=== PATIENT | male | born 1975 | race Asian ===

== ENCOUNTER 2024-07-06 04:03 | Emergency (ER) | payer OTHER, SELFPAY ==
[2024-07-06 04:08] VITALS: BP 143/98
[2024-07-06 04:18] VITALS: BMI 24.9
[2024-07-06 04:41] LABS: Hematocrit 38.3 % (39.0-52.0); Hemoglobin 13.5 g/dL (13.0-18.0); Mean Corp Hgb Conc. 35.2 g/dL (33.0-37.0); Mean Corpuscular Hgb 27.4 pg (27.0-31.0); Mean Corpuscular Volume 77.8 fL (80.0-94.0); Mean Platelet Volume 9.8 fL (7.4-10.4); Platelet Count 280 10^3/uL (130-400); Red Blood Cell Count 4.92 10^6/uL (4.70-6.10); Red Cell Dist. Width 12.5 % (11.5-14.5); White Blood Cell Count 9.4 10^3/uL (4.8-10.8)
[2024-07-06 04:52] LABS: ALT (SGPT) 18 U/L (0-50); AST (SGOT) 21 U/L (17-59); Albumin 4.5 g/dl (3.5-5.0); Alkaline Phosphatase 75 U/L (38-126); Blood Urea Nitrogen 30 mg/dl (9-20); Calcium 9.7 mg/dl (8.4-10.2); Carbon Dioxide 23 mmol/L (22-30); Chloride 104 mmol/L (98-107); Estimated Creatinine Clearance 80 ml/min; Glucose 177 mg/dl (70-99); Lipase 190 U/L (23-300); Potassium 3.6 mmol/L (3.5-5.1); Sodium 138 mmol/L (135-145); Total Bilirubin 0.5 mg/dl (0.2-1.3); Total Protein 6.8 g/dl (6.3-8.2); eGFR > 60.00
--- NOTE | 2024-07-06 04:54 | ED.GENMED ---
History of Present Illness
<Nehemiah Rodriguez [facility] - Last Filed: 07/06/24 06:29>
General
Chief Complaint: Abdominal Pain
Source: patient
Exam Limitations: none
Time Seen by Provider: 07/06/24 04:40
History of Present Illness
History of Present Illness:
Pt is a 48 y/o male with PMHx of DM and GERD presenting for lower abdominal pain x 2 hours. Pt states the pain woke him up from sleep. He states it is a 10/10 pain across his entire lower quadrant and across the lower back. He states the pain is
significantly worse in his abdomen than his back. He was given Fentanyl by EMS and states it did not help at all. He states he is also having nausea with no vomiting since the pain started. He was given Zofran by EMS and states it did not help. He
states he went to bed feeling fine. He denies any fevers, diarrhea, hematochezia, chest pain, shortness of breath, vomiting, dysuria, hematuria.
Phy Exam
<Nehemiah Rodriguez [facility] - Last Filed: 07/06/24 06:29>
Physical Exam
Physical Exam:
GENERAL: Patient appears uncomfortable in moderate distress. He is rolling back in forth in bed repeating 'I am in so much pain'
EYE: pupils equal and reactive
Throat: Airway intact, no exudates
NECK: Supple, no significant adenopathy.
CARDIAC: Regular rate and rhythm . No murmurs.
LUNGS: Clear breath sounds bilaterally, no acute respiratory distress, no wheezes/rales/rhonchi
ABDOMEN: Tender to palpation in entire lower abdomen worse in the RLQ. No guarding. Abdomen is soft and nondistended. No cvat. Negative Rovsing's, obturator and Psoas signs. No Mcburney's tenderness.
NEUROLOGICAL: Alert and oriented, no focal neuro deficits
SKIN: Warm and dry, skin intact.
MUSCULOSKELETAL: No edema, well perfused.
PSYCH: Normal and appropriate interaction.
Course
<[facility] - Last Filed: 07/06/24 06:29>
Orders/Labs/Results
Orders:
Orders
07/06/24 04:11
IV Insert/Care/Rem.- Treatment PRN
07/06/24 04:12
Electrocardiogram (*1) Urgent
Reason for Study: Abdominal Pain
EKG- Treatment ONCE
07/06/24 04:20
Complete Blood Count/With Diff Urgent
Comprehensive Metabolic Panel Urgent
Lipase Urgent
Urinalysis Reflex To Culture Urgent
Date Specimen was Collected: 07/06/24
Time Specimen was Collected: 04:12
Urine Microscopic Reflex Cult Urgent
Urine Culture Urgent
CARLOS Source: U
Specimen Description:
Date Specimen was Collected: 07/06/24
Time Specimen was Collected: 04:12
07/06/24 04:50
CT Abd/pelvis W Iv Cont Urgent
Comment:
Reason For Exam: lower abd pain
HYDROmorphone [Dilaudid] 1 mg IV NOW STA
07/06/24 04:58
Lactic Acid Q4H
Comment: CANCEL 2nd LACTIC ACID IF 1st LACTIC ACID IS LESS THAN 2
07/06/24 09:00
Lactic Acid Q4H
Comment: CANCEL 2nd LACTIC ACID IF 1st LACTIC ACID IS LESS THAN 2
Abnormal Lab Results
07/06/24 07/06/24
04:20 04:58
Hct 38.3 L %
(39.0-52.0)
MCV 77.8 L fL
(80.0-94.0)
Absolute Lymphs (auto) 5.2 H 10^3/uL
(1.2-3.4)
Neutrophils % 37.2 L %
(42.2-75.2)
Lymphocytes % 55.4 H %
(20.5-51.1)
BUN 30 H mg/dl
(9-20)
Glucose 177 H mg/dl
(70-99)
Lactic Acid 2.2 H mmol/L
(0.7-2.0)
Urine Ketones 1+ A
(Negative)
Ur Occult Blood Reflex 3+ A
(Negative)
Leukocyte Esterase Rfl 1+ A
(Negative)
07/06/24 04:20
07/06/24 04:20
Vital Signs
Initial and Last Documented VS:
Initial Vital Signs
Pulse Resp Pulse Ox
64 20 100
07/06/24 04:07 07/06/24 04:07 07/06/24 04:07
Last Documented Vital Signs
Pulse Resp BP Pulse Ox
64 16 109/80 98
07/06/24 06:00 07/06/24 06:00 07/06/24 06:00 07/06/24 06:00
<Emory Escalera, DO - Last Filed: 07/06/24 06:45>
Orders/Labs/Results
Orders:
Orders
07/06/24 04:11
IV Insert/Care/Rem.- Treatment PRN
07/06/24 04:12
Electrocardiogram (*1) Urgent
Reason for Study: Abdominal Pain
EKG- Treatment ONCE
07/06/24 04:20
Complete Blood Count/With Diff Urgent
Comprehensive Metabolic Panel Urgent
Lipase Urgent
Urinalysis Reflex To Culture Urgent
Date Specimen was Collected: 07/06/24
Time Specimen was Collected: 04:12
Urine Microscopic Reflex Cult Urgent
Urine Culture Urgent
CARLOS Source: U
Specimen Description:
Date Specimen was Collected: 07/06/24
Time Specimen was Collected: 04:12
07/06/24 04:50
CT Abd/pelvis W Iv Cont Urgent
Comment:
Reason For Exam: lower abd pain
HYDROmorphone [Dilaudid] 1 mg IV NOW STA
07/06/24 04:58
Lactic Acid Q4H
Comment: CANCEL 2nd LACTIC ACID IF 1st LACTIC ACID IS LESS THAN 2
07/06/24 09:00
Lactic Acid Q4H
Comment: CANCEL 2nd LACTIC ACID IF 1st LACTIC ACID IS LESS THAN 2
Abnormal Lab Results
07/06/24 07/06/24
04:20 04:58
Hct 38.3 L %
(39.0-52.0)
MCV 77.8 L fL
(80.0-94.0)
Absolute Lymphs (auto) 5.2 H 10^3/uL
(1.2-3.4)
Neutrophils % 37.2 L %
(42.2-75.2)
Lymphocytes % 55.4 H %
(20.5-51.1)
BUN 30 H mg/dl
(9-20)
Glucose 177 H mg/dl
(70-99)
Lactic Acid 2.2 H mmol/L
(0.7-2.0)
Urine Ketones 1+ A
(Negative)
Ur Occult Blood Reflex 3+ A
(Negative)
Leukocyte Esterase Rfl 1+ A
(Negative)
07/06/24 04:20
07/06/24 04:20
Vital Signs
Initial and Last Documented VS:
Initial Vital Signs
Pulse Resp Pulse Ox
64 20 100
07/06/24 04:07 07/06/24 04:07 07/06/24 04:07
Last Documented Vital Signs
Pulse Resp BP Pulse Ox
64 16 109/80 98
07/06/24 06:00 07/06/24 06:00 07/06/24 06:00 07/06/24 06:00
<YAAKOV Corley - Last Filed: 07/06/24 06:29>
MDM/Problems Addressed
Differential Diagnosis Includes:
Differential diagnosis includes but is not limited to diverticulitis, nephrolithiasis, appendicitis, AAA
<YAAKOV Corley - Last Filed: 07/06/24 06:29>
*Radiology
Radiology exam reviewed: radiology read reviewed
*Pulse Oximetry
Patient hypoxic: no
*EKG
Interpreted by ED Provider?: Yes
EKG Intrepretation Date: 07/06/24
Interpretation: normal
Comparison EKG: no comparison EKG present
Heart Rate: 59
Rate: bradycardiac
Rhythm: sinus
[place]: normal axis
Interval: normal interval
QRS Pattern: normal QRS
Ischemia: no ischemia
*Spray Painter Helper Interpretation
Rate: Spray Painter Helper- N/A
*Critical Care Note
Total Time (30-74mins, 75-104mins- exclusive of procedures): Not Applicable
ED Attending Note
<YAAKOV Corley - Last Filed: 07/06/24 06:29>
-
Portions of this chart may have been created with voice recognition software.� Occasional wrong word or��sound alike� substitutions may have occurred due to the inherent limitations of voice recognition software.
<Emory Escalera DO - Last Filed: 07/06/24 06:45>
ED Attending Note
Patient seen and examined by attending physician: Yes
I performed the substantive portion of visit, reviewed & personally made and approve the management plan that is documented in note by myself or SREEKANTH.: Yes
ED Attending Note:
48-year-old male presents with lower abdominal pain that has been present for the last 2 hours. He states that the pain awakened him from sleep. He states that when the pain is sharpest he had some vomiting. He describes his pain as 10 out of 10
across his lower abdomen. Patient came via EMS and was given fentanyl and route. He states that that took the edge off but is now off. Patient denies chest pain or shortness of breath. Patient was seen in conjunction with the PA student. I have
reviewed and agree with the history and treatment plan presented. On my independent physical exam, patient is awake, alert, and oriented x3, moderate acute distress lying right lateral recumbent position of the bed. Diffuse tenderness to palpation
without rigidity or guarding in the abdomen. Negative Galindo sign. Negative Shreyas's point tenderness. Left CVA tenderness. No right CVA tenderness. Lungs clear to auscultation bilateral without wheezes rales or rhonchi. Heart is regular rate
and rhythm.
CT abdomen and pelvis with IV contrast
IMPRESSION:
Mild left hydroureteronephrosis with a 2 mm stone lodged in the distal left ureter on series 201, image 76, compatible with obstructive uropathy. Correlate with urinalysis to assess for superimposed infection.
No cholecystitis or pancreatitis. Small hiatal hernia. Appendix normal. Constipation without bowel obstruction. Small bilateral fat-containing inguinal hernias.
I did order patient Dilaudid. Patient states that he refused the Dilaudid because the pain had subsided. It is likely that the kidney stone merged into the bladder. I did discuss return to ER instructions at length with patient. I will be
prescribing him 2 prescriptions include Voltaren, and Percocet. He is allergic to sulfa which has a cross-reactivity to Flomax. Given that the stone has likely passed, I do not feel the Flomax is necessary. He will follow-up with urology as
needed. He will get a urine strainer.
Discharge Plan
Departure
Patient Disposition: Home (Routine Discharge)
Date of Disposition: 07/06/24
Time of Disposition: 06:42
Patient with high blood pressure during this ER visit?: No
Condition: Good
Discharge Problem:
Kidney stone
Instructions: Kidney Stones (DC), How to Strain Your Urine
Prescriptions:
New
oxycodone-acetaminophen [Percocet] 5-325 mg Tablet
1 tab PO Q6HPRN PRN (Reason: pain) Qty: 5 0RF
diclofenac sodium 75 mg tablet,delayed release (DR/EC)
75 mg PO BID Qty: 10 0RF
No Action
metformin 500 mg Tablet
500 mg PO BID
cetirizine [Zyrtec] 10 mg Tablet
10 mg PO .Q48HR
Nexium
10 mg PO DAILY PRN (Reason: gerd)
Referrals:
Aamir Irene MD [Active] - As needed
Shawn Valencia MD [Family Provider] -
Activity Restrictions/Additional Instructions:
Since no pharmacy was selected, I have printed out your prescriptions and are included in the discharge packet
It was a pleasure meeting you and taking part in your care. We hope for your continued healing and wellness.
Please read discharge instructions in their entirety. However, they are for general education and may not describe your exact diagnosis at discharge. Information on your ER visit and medical conditions were discussed with you along with appropriate
follow up information...
If indicated, please take your medications as instructed and indicated on discharge paperwork.
Please schedule a follow up appointment as directed. Call to schedule an appointment
Please return to the emergency department with ANY change in, persisting, or worsening of symptoms. If any of your symptoms do not improve, or persist, or become more severe within 6-12 hours, please return to the emergency department for further
care.
Please return to the emergency department if you develop a headache, neck pain/stiffness, fever greater than 100.4F, chest pain, shortness of breath, persistent nausea, vomiting, slurred speech, difficulty walking, numbness/tingling, weakness, signs
of infection or any other symptoms that are worrisome to you.
If you have any questions or concerns please do not hesitate to call the Hospital at or E-mail me directly at [email or web address]
Interventions
Interventions:
*Risk Screen - Suicide Last Done: 07/06/24 04:20
*General Assessment Last Done: 07/06/24 04:21
*Neglect/Abuse Screening Last Done: 07/06/24 04:21
ED- Fall Risk Assessment Last Done: 07/06/24 04:20
*ED COVID-19 Vaccine History Last Done: 07/06/24 04:22
MW-Wvzbxf-Airtskibow Assessment Last Done: 07/06/24 04:20
Discharge Date and Time
Print Language: CROATIAN
[2024-07-06 05:00] VITALS: BP 132/88
[2024-07-06 05:10] LABS: % Basophils 0.4 % (0-2); % Eosinophils 1.5 % (0-6); % Immature Granulocytes 0.3 % (0-0.5); % Lymphocytes 55.4 % (20.5-51.1); % Monocytes 5.2 % (1.7-9.3); % Neutrophils 37.2 % (42.2-75.2); Absolute Eosinophils 0.1 10^3/uL (0-0.7); Absolute Lymphocytes 5.2 10^3/uL (1.2-3.4); Absolute Monocytes 0.5 10^3/uL (0.1-0.6); Absolute Neutrophils 3.5 10^3/uL (1.4-6.5); Nucleated Red Blood Cells % 0 % (-)
[2024-07-06 05:31] VITALS: BP 117/79
[2024-07-06 05:37] LABS: Lactic Acid 2.2 mmol/L (0.7-2.0)
[2024-07-06 05:41] LABS: Urine Albumin Trace (Neg - Trace); Urine Bilirubin Negative (Negative); Urine Character Clear (Clear); Urine Color Yellow; Urine Glucose Negative (Negative); Urine Ketone 1+ (Negative); Urine Leukocyte 1+ (Negative); Urine Nitrite Negative (Negative); Urine Occult Blood 3+ (Negative); Urine Urobilinogen Negative (Neg - 1+)
[2024-07-06 06:00] VITALS: BP 109/80
[2024-07-06 06:38] LABS: Urine Red Blood Cell >100 /HPF (0-2)
[2024-07-06 07:00] VITALS: BP 114/79
== END 2024-07-06 07:05 | disposition home or self-care (01) ==
LOC: EMR 04:03
PROVIDERS: EMERGENCY PHYSICIAN Student in an Organized Health Care Education/Training Program; FAMILY PHYSICIAN Internal Medicine
DX: N13.2 Hydronephrosis with renal and ureteral calculous obstruction (principal); K44.9 Diaphragmatic hernia without obstruction or gangrene; K59.00 Constipation, unspecified; R11.0 Nausea; K40.20 Bilateral inguinal hernia, without obstruction or gangrene, not specified as recurrent; E11.9 Type 2 diabetes mellitus without complications; K21.9 Gastro-esophageal reflux disease without esophagitis; Z88.0 Allergy status to penicillin; Z88.2 Allergy status to sulfonamides
CPT/HCPCS: 99285; 74177; 80053; 81003; 81015; 83605; 83690; 85025; 87086; 93005; Q9967